=== PATIENT | female | born 1935 | race Caucasian/White ===

== ENCOUNTER 2016-04-20 00:32 | Emergency (ER) | payer MEDICAID, MEDICARE ==
[~2016-04-20] VITALS: Ht 139.7 cm; Wt 65.0 kg
[~2016-04-20 00:32] MED LIST: ALBU8.5H IH; AMOX-462 PO; ATEN25 PO; FLUT110HFA IH; FURO20 PO; ISOS30TA6 PO; LEVO100 PO; OMEP20 PO; PRED10 PO; TRAZ-144 PO
[2016-04-20] MEDS ORDERED: MORPHINE SULFATE 4 MG/ML SYRINGE IVP ONE ×2 (01:00→03:00)
[2016-04-20] MEDS ORDERED: KETAMINE HCL 50 MG/ML 10 ML VIAL IVP ONE ×2 (01:45→02:25)
[2016-04-20 10:08] VITALS: BP 149/66
== END 2016-04-20 10:09 | disposition home or self-care (01) ==
LOC: EMS 00:33
DX: S52.502A Unspecified fracture of the lower end of left radius, initial encounter for closed fracture (principal); J45.909 Unspecified asthma, uncomplicated; I10 Essential (primary) hypertension; W18.40XA Slipping, tripping and stumbling without falling, unspecified, initial encounter; Y93.89 Activity, other specified; Y92.89 Other specified places as the place of occurrence of the external cause; Y99.8 Other external cause status
CPT/HCPCS: 25605; 73080; 73110; 96374; 96375; 96376; 99284; J2270; J3490

== ENCOUNTER 2021-06-07 15:24 | Inpatient (IN) | payer MEDICARE, MEDICAID ==
[~2021-06-07] VITALS: Ht 149.9 cm; Wt 79.9 kg
[~2021-06-07 15:24] MED LIST changes: -ALBU8.5H IH; +ALBU8.5H8 IH; -AMOX-462 PO; +ATEN-73 PO; -ATEN25 PO; +FLUT110H IH; -FLUT110HFA IH; -ISOS30TA6 PO; +ISOS30TA92 PO; -PRED10 PO; -TRAZ-144 PO; +TRAZ-252 PO
[2021-06-07 16:54] LABS: BASOPHILS % (AUTO) 0.5 % (0.0-2.0); EOSINOPHILS % (AUTO) 1.8 % (1.0-6.0); HEMATOCRIT 35.1 % (36-46); HEMOGLOBIN 11.9 g/dL (12.0-16.0); LYMPHOCYTES # (AUTO) 1.6 K/uL (1.0-4.8); LYMPHOCYTES % (AUTO) 20.1 % (22.0-44.0); MEAN CORPUSCULAR HEMOGLOBIN 31.1 pg (26.0-34.0); MEAN CORPUSCULAR HGB CONC 33.9 G/dL (31.0-37.0); MEAN CORPUSCULAR VOLUME 92 fL (80-100); MONOCYTES # (AUTO) 0.5 K/uL (0.1-1.0); MONOCYTES % (AUTO) 6.1 % (2.0-9.0); NEUTROPHILS # (AUTO) 5.7 K/uL (1.8-7.7); NEUTROPHILS % (AUTO) 71.5 % (40.0-70.0); PLATELET COUNT (AUTO) 328 K/uL (150-450); RED BLOOD CELL COUNT(AUTO) 3.82 MIL/uL (4.00-5.20); RED CELL DISTRIBUTION WIDTH 14.7 % (11.5-14.5)
[2021-06-07] MEDS ORDERED: MORPHINE SULFATE 2 MG/ML SYRINGE IVP ONE (17:15)
[2021-06-07] MEDS ORDERED: ONDANSETRON HCL 4 MG/2 ML VIAL IVP ONE ×2 (17:15→19:15)
[2021-06-07] MEDS ORDERED: SODIUM CHLORIDE 0.9% 1,000 ML IV ONE (17:15)
[2021-06-07 17:23] LABS: LACTIC ACID 1.2 mmol/L (0.4-2.0)
[2021-06-07 17:29] LABS: ALANINE AMINOTRANSFERASE 22 U/L (12-78); ALBUMIN 3.8 g/dL (3.4-5.0); ALKALINE PHOSPHATASE 64 U/L (46-116); ANION GAP 6 mmol/L (8-16); ASPARTATE AMINOTRANSFERASE 21 U/L (15-37); BILIRUBIN,TOTAL 0.4 mg/dL (0.1-1.0); CALCIUM, TOTAL 8.5 mg/dL (8.8-10.5); CARBON DIOXIDE 29 mmol/L (22-29); CHLORIDE 88 mmol/L (98-107); CREATININE 0.68 mg/dL (0.60-1.30); GLUCOSE,RANDOM 112 mg/dL (70-110); LIPASE 90 U/L (73-393); POTASSIUM 4.2 mmol/L (3.5-5.1); TOTAL PROTEIN, SERUM 7.4 g/dL (6.4-8.2); UREA NITROGEN, BLOOD 6 mg/dL (7-18)
[2021-06-07 17:33] LABS: GLOMERULAR FILTR. RATE CALC > 60 mL/min (>60); SODIUM SERUM 123 mmol/L (136-145)
[2021-06-07] MEDS ORDERED: IOHEXOL 350 MG/ML 100 ML VIAL ONE (18:41)
[2021-06-07] MEDS ORDERED: SODIUM CHLORIDE 0.9% 100 ML ONE (18:41)
[2021-06-07] MEDS ORDERED: HYDROmorphone 2 MG/ML VIAL IVP ONE (19:15)
[2021-06-07] MEDS ORDERED: FUROSEMIDE 40 MG/4 ML VIAL IVP ONE (20:15)
[2021-06-07] MEDS ORDERED: ONDANSETRON HCL 4 MG/2 ML VIAL IVP PRN (20:30)
[2021-06-07 21:35] LABS: APPEARANCE,URINE CLEAR (CLEAR); BILIRUBIN,URINE NEGATIVE (NEGATIVE); GLUCOSE, URINE (UA) NEGATIVE (NEGATIVE); KETONES,URINE NEGATIVE (NEGATIVE); LEUKOCYTE ESTERASE ,URINE NEGATIVE (NEGATIVE); NITRATE,URINE NEGATIVE (NEGATIVE); OCCULT BLOOD,URINE NEGATIVE (NEGATIVE); PH,URINE 6.5 (5.0-8.0); PROTEIN,URINE NEGATIVE (NEGATIVE); SPECIFIC GRAVITIY, URINE 1.023 (1.003-1.030); UROBILINOGEN,URINE <=1.0 mg/dL (<=1.0)
[2021-06-07 21:36] LABS: CREATININE,URINE RANDOM 33.9 mg/dL (30.0-125.0)
[2021-06-07 21:50] LABS: BACTERIA,URINE None Seen /HPF (None Seen); RBC,URINE 0-2 /HPF (0-2); WBC,URINE None Seen /HPF (0-5)
[2021-06-07 23:29] LABS: ANION GAP 6 mmol/L (8-16); CALCIUM, TOTAL 7.9 mg/dL (8.8-10.5); CARBON DIOXIDE 30 mmol/L (22-29); CHLORIDE 89 mmol/L (98-107); CREATININE 0.68 mg/dL (0.60-1.30); GLUCOSE,RANDOM 144 mg/dL (70-110); POTASSIUM 3.8 mmol/L (3.5-5.1); SODIUM SERUM 125 mmol/L (136-145); UREA NITROGEN, BLOOD 6 mg/dL (7-18)
[2021-06-07 23:31] LABS: GLOMERULAR FILTR. RATE CALC > 60 mL/min (>60)
[2021-06-07 23:34] LABS: COVID AG,FIA SOURCE NASAL SWAB
[2021-06-08] MEDS: HEPARIN SODIUM,PORCINE 5,000 UNITS/ML VIAL SQ SCH ×2 (01:12→08:00)
[2021-06-08] MEDS ORDERED: NALOXONE HCL 1 MG/ML 2 ML SYRINGE IVP ONE ×2 (01:30→02:15)
[2021-06-08] MEDS ORDERED: NALOXONE HCL 0.4 MG/ML VIAL IVP ONE (02:00)
[2021-06-08] MEDS ORDERED: SODIUM CHLORIDE 0.9% 1,000 ML IV SCH (02:00)
[2021-06-08 02:18] VITALS: BP 146/80
[2021-06-08 05:26] VITALS: BP 118/50
[2021-06-08 06:45] LABS: BASOPHILS % (AUTO) 0.4 % (0.0-2.0); EOSINOPHILS % (AUTO) 0.5 % (1.0-6.0); HEMATOCRIT 34.1 % (36-46); HEMOGLOBIN 11.5 g/dL (12.0-16.0); LYMPHOCYTES # (AUTO) 1.2 K/uL (1.0-4.8); LYMPHOCYTES % (AUTO) 11.9 % (22.0-44.0); MEAN CORPUSCULAR HEMOGLOBIN 31.2 pg (26.0-34.0); MEAN CORPUSCULAR HGB CONC 33.8 G/dL (31.0-37.0); MEAN CORPUSCULAR VOLUME 92 fL (80-100); MONOCYTES # (AUTO) 0.7 K/uL (0.1-1.0); MONOCYTES % (AUTO) 6.9 % (2.0-9.0); NEUTROPHILS # (AUTO) 8.3 K/uL (1.8-7.7); NEUTROPHILS % (AUTO) 80.3 % (40.0-70.0); PLATELET COUNT (AUTO) 301 K/uL (150-450); RED CELL DISTRIBUTION WIDTH 14.5 % (11.5-14.5)
[2021-06-08 07:13] LABS: ANION GAP 5 mmol/L (8-16); CALCIUM, TOTAL 7.9 mg/dL (8.8-10.5); CARBON DIOXIDE 30 mmol/L (22-29); CHLORIDE 91 mmol/L (98-107); CREATININE 0.73 mg/dL (0.60-1.30); GLOMERULAR FILTR. RATE CALC > 60 mL/min (>60); GLUCOSE,RANDOM 92 mg/dL (70-110); POTASSIUM 4.1 mmol/L (3.5-5.1); SODIUM SERUM 126 mmol/L (136-145); UREA NITROGEN, BLOOD 8 mg/dL (7-18)
[2021-06-08 08:57] VITALS: BP 121/45
[2021-06-08] MEDS ORDERED: SIMETHICONE 80 MG CHEWABLE TABLET CHEW ONE (12:00)
[2021-06-08] MEDS ORDERED: MINERAL OIL 133 ML ENEMA PR ONE (13:00)
== END 2021-06-08 14:45 | disposition left against medical advice (07) | DRG 389 ==
LOC: EMS 15:24 → 5N 20:30
PROVIDERS: ADMIT Internal Medicine; ATTEND Internal Medicine
DX: K56.7 Ileus, unspecified (principal); E87.1 Hypo-osmolality and hyponatremia; Z20.822 Contact with and (suspected) exposure to COVID-19; Z53.29 Procedure and treatment not carried out because of patient's decision for other reasons; D64.9 Anemia, unspecified; K21.9 Gastro-esophageal reflux disease without esophagitis; I25.10 Atherosclerotic heart disease of native coronary artery without angina pectoris; I11.0 Hypertensive heart disease with heart failure; I50.9 Heart failure, unspecified; E03.9 Hypothyroidism, unspecified; E66.9 Obesity, unspecified; Z85.3 Personal history of malignant neoplasm of breast; Z85.038 Personal history of other malignant neoplasm of large intestine; Z68.35 Body mass index [BMI] 35.0-35.9, adult
CPT/HCPCS: 71045; 74177; 80048; 80053; 81001; 82533; 82570; 83605; 83690; 83735; 83880; 84300; 84443; 84484; 85025; 99285; J1170; J1644; J1940; J2270; J2310; J2405; J7030; J7050; Q9967; 36415-L1; 36415-TC